=== PATIENT | male | born 1990 | race African-American/Black ===

== ENCOUNTER 2016-11-08 11:24 | Emergency (ER) | payer OTHER ==
[~2016-11-08] VITALS: Ht 182.9 cm; Wt 70.0 kg
[2016-11-08 11:27] VITALS: Ht 182.9 cm; Wt 70.0 kg
[2016-11-08] MEDS ORDERED: NA PHOSPHATE/BIPHOS 133 ML ENEMA PR ONE ×2 (13:30)
[2016-11-08] MEDS ORDERED: DOCU-144 PO (14:18)
[2016-11-08] MEDS ORDERED: POLY17PO6 PO (14:18)
[2016-11-08 14:21] VITALS: BP 136/76; PULSE 76; RESP 18; TEMP 98.3
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
== END 2016-11-08 14:21 | disposition home or self-care (01) ==
LOC: FTE 11:24
DX: K59.00 Constipation, unspecified (principal)
CPT/HCPCS: 99283